=== PATIENT | male | born 1985 | race Caucasian/White ===

== ENCOUNTER → 2017-01-24 19:30 | Outpatient (CLI) | payer MEDICAID ==
[2016-03-11 22:04] VITALS: BMI 21.9
== END | disposition home or self-care (01) ==
LOC: D.LABREF 19:30
DX: R31.9 Hematuria, unspecified (principal)

== ENCOUNTER → 2017-01-25 08:10 | Outpatient (CLI) | payer MEDICAID ==
[2016-03-11 22:04] VITALS: BMI 21.9
== END | disposition home or self-care (01) ==
LOC: D.CT 08:10
DX: R31.9 Hematuria, unspecified (principal)